=== PATIENT | female | born 1995 | race Two or more races ===

== ENCOUNTER 2018-02-10 17:42 | Emergency (ER) | payer MEDICAID | END 2018-02-10 18:28 | disposition left against medical advice (07) | LOC: ER 17:42 | DX: Z53.21 Procedure and treatment not carried out due to patient leaving prior to being seen by health care provider (principal) ==

== ENCOUNTER 2018-08-31 16:46 | Observation (INO) | payer MEDICAID ==
[~2018-08-31] VITALS: Ht 162.6 cm; Wt 96.2 kg
[2018-08-31] MEDS ORDERED: FOLI-43 MT (17:29)
[2018-08-31] MEDS ORDERED: PREN-55 PO (17:32)
[2018-08-31 18:20] LABS: CLARITY URINE CLOUDY (CLEAR); COLOR URINE YELLOW (YELLOW); KETONES URINE NEGATIVE (NEGATIVE); LEUKOCYTE ESTERASE URINE NEGATIVE (NEGATIVE); NITRITE URINE NEGATIVE (NEGATIVE); OCCULT BLOOD URINE NEGATIVE (NEGATIVE); PROTEIN URINE NEGATIVE (NEGATIVE); SPECIFIC GRAVITY URINE 1.012 (1.005-1.030); UROBILINOGEN URINE 0.2 E.U./dL (0.2-1.0)
[2018-08-31] MEDS ORDERED: ACETAMINOPHEN 500MG TABLET PO NR (19:15)
== END 2018-08-31 19:40 | disposition home or self-care (01) ==
LOC: INTOOBSV 16:46 → L&D 16:46
PROVIDERS: ADMIT Specialist; ATTEND Specialist
DX: O26.893 Other specified pregnancy related conditions, third trimester (principal); M54.5 Low back pain; Z3A.34 34 weeks gestation of pregnancy
CPT/HCPCS: 81003; G0378; 99281